=== PATIENT | male | born 1975 | race Caucasian/White ===

== ENCOUNTER 2018-02-07 05:20 | Emergency (ER) | payer BC ==
--- NOTE | 2018-02-07 09:22 | RAD ---
THREE VIEWS RIGHT WRIST: DATE: 02/07/18. HISTORY: Right wrist injury. FINDINGS: There is no evidence of a fracture, dislocation, or other osseous abnormality involving the right wri st. IMPRESSION: No acute osseous abnormality. If there is concern for fracture of the navicular bone or persistent p ain, followup imaging right wrist is advised in 4-7 days to exclude radiographically occult fracture. POS: [facility]
== END 2018-02-07 06:11 | disposition home or self-care (01) ==
LOC: ERS 05:20
DX: M25.531 Pain in right wrist (principal)

== ENCOUNTER 2018-03-22 09:50 | Emergency (ER) | payer BC ==
--- NOTE | 2018-03-22 12:41 | RAD ---
LEFT ANKLE 3 VIEWS: HISTORY: Ankle pain. No known injury. FINDINGS: Small calcaneal spurs are present. The ankle joint is well preserved. No joint effusion. No fractu re is identified. IMPRESSION: No acute findings. POS: [facility]
--- NOTE | 2018-03-22 12:42 | RAD ---
LEFT KNEE 4 VIEWS: HISTORY: Knee pain. No injury. FINDINGS: There is no joint effusion or fracture. There are very minimal arthritic changes present. IMPRESSION: No evidence of any acute injury. No joint effusion. POS: [facility]
== END 2018-03-22 12:03 | disposition home or self-care (01) ==
LOC: ERS 09:50
DX: M72.2 Plantar fascial fibromatosis (principal)